=== PATIENT | male | born 1985 | race Caucasian/White ===

== ENCOUNTER 2016-05-09 06:48 | Inpatient (IN) | payer MEDICAID ==
--- NOTE | ~2016-05-09 | PN ---
Unit #: [id number] #: [id number] Patient: NICK HARRIS JR [id number] [facility] [address] [place] [address] [id number] MR#: [id number] NAME: NICK HARRIS JR ROOM: P184 Age: 30 Sex: M Admission Date: 05/09/2016 : 1985 Attending Physician: Terry Martin M.D. Admitting Physician: Terry Martin M.D. Primary Care Physician: Kg Gannon PROGRESS NOTES DATE 05/10/2016 DISCUSSION Ms. Harris seems to have active detox symptoms today. His mood is anxious with congruent affect. He is alert and fully oriented with no psychosis and no suicidal ideation. ASSESSMENT Opiate dependence. PLAN Continue detox protocol. Dictated by... Terry Martin M.D. MRH/bzg TD: 05/11/2016 09:19 JOB #: [id number] ZANDER PROGRESS NOTES X Terry Martin MD PROGRESS NOTE
--- NOTE | ~2016-05-09 | PN ---
Unit #: [id number] #: [id number] Patient: CELSO MUÑOZ JR [id number] [facility] [address] [place] [address] [id number] MR#: [id number] NAME: CELSO MUÑOZ JR ROOM: P184 Age: 30 Sex: M Admission Date: 05/09/2016 : 1985 Attending Physician: Terry Martin M.D. Admitting Physician: Terry Martin M.D. Primary Care Physician: Kg Gannon PROGRESS NOTES DATE OF SERVICE: 05/12/2016 DISCUSSION Celso continues to have detox and today with a dysphoric mood and affect. He slept a little better last night. He is alert and fully oriented with no psychosis and no SI. ASSESSMENT Opioid dependence. PLAN Continue current treatment plan. Dictated by... Kg TolliverH/robin TD: 05/13/2016 06:17 JOB #: [id number] ZANDER GIPSON NOTES X Terry Martin MD PROGRESS NOTE
--- NOTE | ~2016-05-09 | PN ---
Unit #: [id number] #: [id number] Patient: CELSO MUÑOZ JR [id number] [facility] [address] [place] [address] [id number] I MR#: [id number] NAME: CELSO MUÑOZ JR ROOM: P184 Age: 30 Sex: M Admission Date: 05/09/2016 : 1985 Attending Physician: Terry Martin M.D. Admitting Physician: Terry Martin M.D. Primary Care Physician: Kg Gannon PROGRESS NOTES DATE OF SERVICE: 05/11/2016 DISCUSSION Celso continues to complain of active detox symptoms including sweating, restlessness, and irritability. He also complains of significant anxiety and would not like to peer in for this. His mood is dysphoric and irritable with a congruent affect. He is alert and fully oriented. His memory and concentration are fair to good. His thought processes were goal directed with no active psychosis. ASSESSMENT Opioid dependence. PLAN We will provide Vistaril 50 mg every 6 hours as needed for anxiety and continue with the detox protocol. Dictated by... Kg TolliverH/robin TD: 05/12/2016 01:14 JOB #: [id number] ZANDER GIPSON NOTES X Terry Martin MD PROGRESS NOTE
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
--- NOTE | ~2016-05-09 | HP ---
Unit #: [id number] #: [id number] Patient: CELSO MUÑOZ JR [id number] [place] [address] [id number] I MR#: [id number] NAME: CELSO MUÑOZ JR ROOM: P173 Age: 30 Sex: M Admission Date: 05/09/2016 : 1985 Attending Physician: Terry Martin M.D. Admitting Physician: Terry Martin M.D. Primary Care Physician: Radha Monroe M.D. HISTORY AND PHYSICAL HISTORY OF PRESENT ILLNESS Celso is a 30 year old admitted to [facility] because of his drug use which includes heroin and benzodiazepines. PAST MEDICAL HISTORY Long history of polysubstance abuse PAST SURGICAL HISTORY 1. Right rotator cuff repair. 2. Low back. 3. Cervical disc. 4. Bilateral knees. ALLERGIES No known drug allergies. SOCIAL HISTORY Smokes one pack per day. Denies alcohol. Admits to long history of poly illicit substance abuse. FAMILY HISTORY Medically noncontributory. REVIEW OF SYSTEMS CONSTITUTIONAL: No fever or chills. HEENT: Denies any sore throat, ear pain or runny nose. CARDIOVASCULAR: Denies chest pain, irregular heart rhythm or palpitations. CHEST: Denies shortness of breath or cough. No hemoptysis. GASTROINTESTINAL: Denies nausea, vomiting, diarrhea or chronic constipation. ENDOCRINE: Denies history of increased thirst or urination. No recent significant weight loss or gain. GENITOURINARY: Denies dysuria, frequency, or hematuria. SKIN: Denies any rashes. HEMATOLOGIC: Denies history of increased bleeding or bruising. MUSCULOSKELETAL: Denies any hot, swollen joints. No generalized muscle pain. NEUROLOGIC: Denies problems with vision or speech. No frequent, severe headaches. No numbness, tingling or weakness in any extremities. Denies loss of bladder or bowel control. CURRENT MEDICATIONS Unit #: [id number] #: [id number] Patient: CELSO MUÑOZ JR Detox protocol PHYSICAL EXAMINATION GENERAL: Alert, well-nourished, in no apparent distress. VITAL SIGNS: Blood pressure 140/96, heart rate 70, respirations 16, temperature 98.6. WEIGHT: 153 pounds. HEIGHT: 5'6". SKIN: Warm and dry without rash or lesion. HEENT: Normocephalic. TMs not viewed. Oral and nasal passages clear. Conjunctivae clear. Pupils equal, round and reactive to light and accommodation. Extraocular movements intact. NECK: Supple without lymphadenopathy or thyromegaly. HEART: Regular rate and rhythm without murmur. LUNGS: Clear. ABDOMEN: Soft, nontender. : Not done. EXTREMITIES: No evidence of cyanosis, clubbing or edema. Moves all extremities without focal deficit. NEUROLOGICAL: Grossly within normal limits. Cranial Nerves: II: Visual agrawal are intact. III, IV AND : Extraocular movements are intact. Pupils are equal, round and reactive to light. V: Facial sensation is grossly normal. VII: Facial movements and expression are normal. VIII: Auditory acuity grossly intact. IX, X: Uvula is midline. Phonation is normal. XI: Patient shrugs shoulders and turns head normally. XII: Tongue protrudes in the midline. Sensory and Motor Function: Sensory and motor sensation is grossly normal. Motor: moves all extremities well. Coordination: Gait is normal. Deep Tendon Reflexes: Intact. IMPRESSION Psychiatric admission RECOMMENDATIONS PSYCHIATRIC: Per psychiatrist. MEDICAL: I see no contraindications to participating in facility's activities. MEDICAL PROGNOSIS Good. MEDICAL CONDITION Stable. Dictated by... Rebecca Espitia P.A.-C. for Kg Serrano/kylah TD: 05/10/2016 02:34 JOB #: [id number] Unit #: [id number] #: [id number] Patient: CELSO MUÑOZ JR HISTORY AND PHYSICAL X Rebecca Espitia HISTORY AND PHYSICAL
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
--- NOTE | ~2016-05-09 | PN ---
Unit #: [id number] #: [id number] Patient: CELSO MUÑOZ JR [id number] [facility] [address] [place] [address] [id number] I MR#: [id number] NAME: CELSO MUÑOZ JR ROOM: P184 Age: 30 Sex: M Admission Date: 05/09/2016 : 1985 Attending Physician: Terry Martin M.D. Admitting Physician: Terry Martin M.D. Primary Care Physician: Kg Gannon PROGRESS NOTES DATE 05/14/2016 DISCUSSION Celso continues to show some improvement today. He is alert and fully oriented. Memory and concentration are fair. Thought processes are logical and no psychosis. ASSESSMENT Opiate dependence. PLAN Continue current treatment plan. Dictated by... Kg Tolliver/coy TD: 05/15/2016 13:12 JOB #: [id number] ZANDER PROGRESS NOTES X Terry Martin MD PROGRESS NOTE
--- NOTE | ~2016-05-09 | PN ---
Unit #: [id number] #: [id number] Patient: NICK MUÑOZ JR [id number] [facility] [address] [place] [address] [id number] I MR#: [id number] NAME: NICK MUÑOZ JR ROOM: P184 Age: 30 Sex: M Admission Date: 05/09/2016 : 1985 Attending Physician: Terry Martin M.D. Admitting Physician: Terry Martin M.D. Primary Care Physician: Kg Gannon PROGRESS NOTES DATE 05/15/2016 DISCUSSION Mr. Muñoz appears to have minimal detox symptoms today. His mood continues to be anxious and he is using p.r.n. Vistaril appropriately. He is alert and fully oriented. His memory and concentration are fair to good and his thought processes are goal directed with no psychosis. ASSESSMENT Alcohol dependence. PLAN Schedule discharge for the morning in order to coordinate with probation and parole and with outpatient resources. Dictated by... Kg Tolliver/ángela TD: 05/16/2016 22:16 JOB #: [id number] ZANDER PROGRESS NOTES Page 1 of 1 X Terry Martin MD PROGRESS NOTE
[2016-05-10 12:30] LABS: BASOPHIL% 0.3 % (0-2.5); EOSINOPHIL# 0.2 X10e3 (0-0.7); EOSINOPHIL% 1.7 % (0.0-7.0); HEMATOCRIT 47.5 % (38.0-50.0); HEMOGLOBIN 15.3 gm/dL (13.0-16.0); LYMPHOCYTE# 2.9 X10e3 (1.0-3.5); LYMPHOCYTE% 27.5 % (17.0-45.0); MEAN CELL VOLUME 93.8 FL (83-96); MEAN CORPUSCULAR HEMOGLOBIN 30.2 PG (28-34); MEAN CORPUSCULAR HGB CONC 32.2 g/dL (30-36); MEAN PLATELET VOLUME 9.3 FL (6.5-11.5); MONOCYTE% 8.9 % (3.0-12.0); NEUTROPHIL# 6.6 X10e3 (1.5-7.1); NEUTROPHIL% 61.6 % (40-75); PLATELET COUNT 208 X10e3 (140-420); RED BLOOD COUNT 5.06 X10e (3.90-5.60); RED CELL DISTRIBUTION WIDTH 13.7 % (11.0-15.5); WHITE BLOOD COUNT 10.7 X10e3 (4.0-10.5)
[2016-05-10 12:37] LABS: ALBUMIN SERUM 3.5 g/dL (3.5-5.0); ALKALINE PHOSPHATASE 80 U/L (32-92); ALT (SGPT) 12 U/L (10-40); AST (SGOT) 15 U/L (10-42); BILIRUBIN,TOTAL 0.4 mg/dL (0.2-2.0); BLOOD UREA NITROGEN 10 mg/dL (9-23); CALCIUM SERUM 9.3 mg/dL (8.4-10.2); CARBON DIOXIDE 28 mmol/L (22-31); CHLORIDE 106 mmol/L (100-111); GLOM FILT RATE Estimated ABOVE60 mL/min (>60); GLUCOSE FASTING 88 mg/dL (70-110); POTASSIUM 4.1 mmol/L (3.5-5.1); PROTEIN TOTAL SERUM 6.3 g/dL (6.0-8.3); SODIUM 141 mmol/L (135-145)
[2016-05-10 12:40] LABS: DIFF IND NO
[2016-05-11 10:57] LABS: AMPHETAMINE POS (NEG); BARBITURATES NEG (NEG); BENZODIAZEPINES NEG (NEG); COCAINE NEG (NEG); MARIJUANA NEG (NEG); OPIATES NEG (NEG); TRICYCLIC ANTIDEPRESSANTS NEG (NEG); U METHADONE NEG (NEG)
== END 2016-05-16 09:00 | disposition home or self-care (01) | DRG 897 ==
LOC: P1E 06:48 → POF 12:39 → P1E 12:42
PROVIDERS: Psychiatry & Neurology Psychiatry
PROC: HZ2ZZZZ Detoxification Services for Substance Abuse Treatment (ICD-10-PCS; principal; 2016-05-09)
DX: F11.23 Opioid dependence with withdrawal (principal); F11.24 Opioid dependence with opioid-induced mood disorder; F17.210 Nicotine dependence, cigarettes, uncomplicated
CPT/HCPCS: 80053; 80307; 85025; 86592